=== PATIENT | male | born 1985 | race Caucasian/White ===

== ENCOUNTER → 2022-02-22 | Outpatient (CLI) | payer BC ==
--- NOTE | 2022-02-22 08:00 | RAD ---
INDICATION: Reason: RUQ PAIN / Spl. Instructions: / History: COMPARISON: None. TECHNIQUE: Grayscale and color ultrasound images obtained through the abdomen. FINDINGS: Pancreas: Visualized portions unremarkable. Liver: Borderline echogenic. Gallbladder: Partially contracted without definite stones. Common Bile Duct: Not dilated. Right Kidney: No hydronephrosis. Aorta/IVC: Visualized portion unremarkable. IMPRESSION: * No definite gallstones or common bile duct dilation. Electronically signed by: Rigoberto Martin MD (02/22/2022 7:57 AM) [id number]
== END ==
LOC: US 06:31
PROVIDERS: ATTEND Internal Medicine
DX: R10.11 Right upper quadrant pain (principal)
CPT/HCPCS: 76705